=== PATIENT | female | born 1990 | race Caucasian/White ===

== ENCOUNTER → 2016-08-06 | Outpatient (CLI) | payer OTHER ==
[~2016-08-06] MED LIST: CELE10TA OR; CETI10TA OR; FLECTOR PATCH; Inhaler INH; VOLT75TA; YAZ3TAB2 PO; [UNRECOGNIZED DRUG - OTHER]
[2016-08-06 14:02] LABS: BASO % 0.7 % (0.0-1.0); EOS # 0.1 K/mm3 (0.0-0.50); EOS % 1.6 % (0.0-3.0); LYMPH # 1.1 K/mm3 (1.5-6.5); LYMPH % 15.6 % (24.0-44.0); MEAN CORPUSCULAR HEMOGLOBIN 31.6 pg (27.0-33.0); MEAN CORPUSCULAR HGB CONC 33.1 g/dl (32.0-36.5); MEAN CORPUSCULAR VOLUME 95.4 fl (80.0-96.0); MONO # 0.3 K/mm3 (0.0-0.8); MONO % 5.1 % (0.0-5.0); NEUTROPHILS # 4.9 K/mm3 (1.8-7.7); RED CELL DISTRIBUTION WIDTH 11.8 % (11.5-14.5); WHITE BLOOD COUNT 6.5 K/mm3 (4.0-10.0)
[2016-08-06 14:17] LABS: ALBUMIN 4.2 GM/DL (3.2-5.2); ALBUMIN/GLOBULIN RATIO 1.62 (1.00-1.93); ALKALINE PHOSPHATASE 82 U/L (45-117); ALT/SGPT 13 U/L (12-78); ANION GAP 5 MEQ/L (8-16); AST/SGOT 8 U/L (15-37); BILIRUBIN,TOTAL 0.3 MG/DL (0.2-1.0); BLOOD UREA NITROGEN 14 MG/DL (7-18); CALCIUM LEVEL 9.3 MG/DL (8.5-10.1); CARBON DIOXIDE LEVEL 28 MEQ/L (21-32); CHLORIDE LEVEL 109 MEQ/L (98-107); CREATININE FOR GFR 0.84 MG/DL (0.55-1.02); GLOMERULAR FILTRATION RATE > 60.0 (>60); GLUCOSE, FASTING 100 MG/DL (70-105); POTASSIUM SERUM 4.3 MEQ/L (3.5-5.1); SODIUM LEVEL 142 MEQ/L (136-145); TOTAL PROTEIN 6.8 GM/DL (6.4-8.2)
== END ==
LOC: M LAB 13:23
PROVIDERS: ATTEND Otolaryngology
DX: H93.90 Unspecified disorder of ear, unspecified ear (principal)

== ENCOUNTER 2017-03-03 15:11 | Emergency (ER) | payer OTHER ==
[~2017-03-03] VITALS: Ht 154.9 cm; Wt 57.7 kg
[2017-03-03 15:11] VITALS: BP 137/67
[2017-03-03] MEDS ORDERED: phenergan PO (15:41)
[2017-03-03] MEDS ORDERED: ONDA4TAB6 (15:41)
[2017-03-03] MEDS ORDERED: GABA-283 PO (15:41)
[2017-03-03] MEDS ORDERED: GABA-279 (15:41)
[2017-03-03] MEDS ORDERED: plaquenil PO (15:41)
== END 2017-03-03 17:52 | disposition left against medical advice (07) ==
LOC: M ED 15:11
DX: R11.10 Vomiting, unspecified (principal); Z53.29 Procedure and treatment not carried out because of patient's decision for other reasons

== ENCOUNTER 2017-10-01 15:33 | Outpatient (RCR) | payer MEDICAID | END 2017-10-12 | LOC: M OUTALCOH 10-07 15:00 | DX: F12.10 Cannabis abuse, uncomplicated (principal); F17.200 Nicotine dependence, unspecified, uncomplicated ==

== ENCOUNTER 2017-10-15 10:00 | Outpatient (RCR) | payer MEDICAID | END 2017-11-12 | LOC: M OUTALCOH 10-22 10:00 | DX: F12.10 Cannabis abuse, uncomplicated (principal); F17.200 Nicotine dependence, unspecified, uncomplicated ==

== ENCOUNTER 2017-11-20 16:25 | Outpatient (RCR) | payer MEDICAID | END 2017-12-12 | LOC: M OUTALCOH 12-04 16:00 | DX: F12.10 Cannabis abuse, uncomplicated (principal); F17.200 Nicotine dependence, unspecified, uncomplicated ==

== ENCOUNTER 2017-12-18 11:50 | Outpatient (RCR) | payer MEDICAID | END 2018-01-12 | LOC: M OUTALCOH 11:50 | DX: F12.10 Cannabis abuse, uncomplicated (principal); F17.200 Nicotine dependence, unspecified, uncomplicated ==

== ENCOUNTER → 2018-03-08 | Outpatient (REF) | payer OTHER | LOC: M SFHCLERA 13:30 | DX: J02.9 Acute pharyngitis, unspecified (principal) ==

== ENCOUNTER → 2018-03-15 | Outpatient (REF) | payer OTHER | LOC: M SFHCLERA 19:00 | DX: J02.9 Acute pharyngitis, unspecified (principal) ==

== ENCOUNTER 2018-03-26 16:52 | Emergency (ER) | payer OTHER, MEDICAID ==
[2018-03-26] MEDS: NS 1,000 ML IV (18:17)
[2018-03-26] MEDS: ONDANSETRON 4MG/2ML VIAL (J2405) IV (18:19)
[2018-03-26] MEDS: MORPHINE 4 MG/ML 1ML VIAL/SYRINGE (J2270) IV ×2 (18:20→20:00)
[2018-03-26 18:39] LABS: HEMATOCRIT 42.7 % (36.0-47.0); HEMOGLOBIN 14.4 g/dl (12.0-15.5); MEAN CORPUSCULAR HEMOGLOBIN 31.2 pg (27.0-33.0); MEAN CORPUSCULAR HGB CONC 33.7 g/dl (32.0-36.5); MEAN CORPUSCULAR VOLUME 92.6 fl (80.0-96.0); PLATELET COUNT, AUTOMATED 146 10^3/uL (150-450); RED BLOOD COUNT 4.61 10^6/uL (4.00-5.40); RED CELL DISTRIBUTION WIDTH 11.9 % (11.5-14.5); WHITE BLOOD COUNT 8.8 10^3/uL (4.0-10.0)
[2018-03-26 18:41] LABS: APPEARANCE, URINE CLEAR (CLEAR); BACTERIA, URINE AUTO 1+ (NEGATIVE); BILIRUBIN, URINE AUTO NEGATIVE (NEGATIVE); BLOOD, URINE BLOOD NEGATIVE (NEGATIVE); COLOR, URINE STRAW (YELLOW); GLUCOSE, URINE (UA) AUTO NEGATIVE (NEGATIVE); KETONE, URINE AUTO NEGATIVE (NEGATIVE); LEUKOCYTE ESTERASE, URINE AUTO NEGATIVE (NEGATIVE); NITRITE, URINE AUTO NEGATIVE (NEGATIVE); PROTEIN, URINE AUTO NEGATIVE (NEGATIVE); RBC, URINE AUTO 0 /HPF (0-3); SPECIFIC GRAVITY URINE AUTO 1.005 (1.002-1.035); SQUAMOUS EPITHELIAL CELL UR AU 0 /HPF (0-6); UROBILINOGEN, URINE AUTO 0.2 mg/dL (0.0-2.0); WBC, URINE AUTO 1 /HPF (0-3)
[2018-03-26 18:51] LABS: INR 0.99; PROTHROMBIN TIME 13.2 SECONDS (12.1-14.4)
[2018-03-26 19:02] LABS: ANION GAP 9 MEQ/L (8-16); BLOOD UREA NITROGEN 14 MG/DL (7-18); CALCIUM LEVEL 8.5 MG/DL (8.5-10.1); CARBON DIOXIDE LEVEL 23 MEQ/L (21-32); CHLORIDE LEVEL 111 MEQ/L (98-107); CREATININE FOR GFR 0.74 MG/DL (0.55-1.30); GLOMERULAR FILTRATION RATE > 60.0 (>60); GLUCOSE, FASTING 81 MG/DL (70-100); POTASSIUM SERUM 3.9 MEQ/L (3.5-5.1); SODIUM LEVEL 143 MEQ/L (136-145)
[2018-03-26 19:03] LABS: CONTROL LINE HCG INT CTR LINE PRESENT; HCG, SERUM QUALITATIVE NEGATIVE (NEGATIVE)
[2018-03-26] MEDS ORDERED: ISOVUE-370 76% 100ML VIAL (Q9967) As Ordered (19:08)
== END 2018-03-26 21:02 | disposition home or self-care (01) ==
LOC: M ED 16:52
DX: S13.4XXA Sprain of ligaments of cervical spine, initial encounter (principal); S33.5XXA Sprain of ligaments of lumbar spine, initial encounter; T14.8XXA Other injury of unspecified body region, initial encounter; V43.52XA Car driver injured in collision with other type car in traffic accident, initial encounter; Y92.410 Unspecified street and highway as the place of occurrence of the external cause; J45.909 Unspecified asthma, uncomplicated; F17.200 Nicotine dependence, unspecified, uncomplicated; Z88.2 Allergy status to sulfonamides; Z79.899 Other long term (current) drug therapy
CPT/HCPCS: J2270

== ENCOUNTER → 2018-07-19 | Outpatient (REF) | payer OTHER, MEDICAID ==
[~2018-07-19] MED LIST changes: +CYCL10TA PO; +GABA-1171; +GABA-843; +GABA-845 PO; +IBUP-1022 PO; +ONDA4TAB6; +XULA1DIS; +phenergan PO; +plaquenil PO
[2018-07-19 13:54] LABS: BASO # 0.1 10^3/uL (0.0-0.2); BASO % 1.1 % (0.0-1.0); EOS # 0.1 10^3/uL (0.0-0.50); EOS % 1.4 % (0.0-3.0); HEMATOCRIT 41.1 % (36.0-47.0); HEMOGLOBIN 13.5 g/dl (12.0-15.5); LYMPH # 0.7 10^3/uL (1.5-6.5); LYMPH % 11.1 % (24.0-44.0); MEAN CORPUSCULAR HEMOGLOBIN 30.8 pg (27.0-33.0); MEAN CORPUSCULAR HGB CONC 32.8 g/dl (32.0-36.5); MEAN CORPUSCULAR VOLUME 93.8 fl (80.0-96.0); MONO # 0.6 10^3/uL (0.0-0.8); MONO % 8.6 % (0.0-5.0); NEUTROPHILS # 5.1 10^3/uL (1.8-7.7); NEUTROPHILS % 77.5 % (36.0-66.0); PLATELET COUNT, AUTOMATED 125 10^3/uL (150-450); RED BLOOD COUNT 4.38 10^6/uL (4.00-5.40); WHITE BLOOD COUNT 6.6 10^3/uL (4.0-10.0)
[2018-07-19 14:05] LABS: ALBUMIN 3.6 GM/DL (3.2-5.2); ALT/SGPT 19 U/L (12-78); BILIRUBIN,TOTAL 0.3 MG/DL (0.2-1.0); BLOOD UREA NITROGEN 16 MG/DL (7-18); CALCIUM LEVEL 8.1 MG/DL (8.5-10.1); CARBON DIOXIDE LEVEL 25 MEQ/L (21-32); CHLORIDE LEVEL 111 MEQ/L (98-107); CREATININE FOR GFR 0.77 MG/DL (0.55-1.30); GLOMERULAR FILTRATION RATE > 60.0 (>60); GLUCOSE, FASTING 101 MG/DL (70-100); POTASSIUM SERUM 4.8 MEQ/L (3.5-5.1); RHEUMATOID FACTOR QUANT < 10.0 IU/ML (<15.0); SODIUM LEVEL 141 MEQ/L (136-145); THYROID STIMULATING HORMONE 0.933 uIU/ML (0.358-3.740); TOTAL PROTEIN 6.2 GM/DL (6.4-8.2)
[2018-07-19 14:11] LABS: TOTAL 25(OH) VITAMIN D 11.7 NG/ML (30.0-100.0)
[2018-07-19 15:14] LABS: ERYTHROCYTE SEDIMENTATION RATE 4 mm/hr (0-20)
[2018-07-20 14:17] LABS: ANTINUCLEAR ANTIBODIES DIRECT Negative (Negative)
== END ==
LOC: M LABNEURO 08:55
PROVIDERS: ATTEND Psychiatry & Neurology Neurology
DX: R51 Headache (principal)

== ENCOUNTER → 2020-06-12 | Outpatient (CLI) | payer OTHER ==
[~2020-06-12] MED LIST changes: +CYCL-707 PO; -CYCL10TA PO; +ISOVUE-370 76% 100ML VIAL As Ordered ONE
--- NOTE | 2020-06-12 08:31 | REPVR ---
PROCEDURE INFORMATION: Exam: CT Temporal Bones Without Contrast. Exam date and time: 06/12/2020 7:40 AM Age: 29 years old Clinical indication: Pain; Other: Ear; Additional info: Dysphagia TECHNIQUE: Imaging protocol: Computed tomography images of the temporal bones without contrast. Radiation optimization: All CT scans at this facility use at least one of these dose optimization techniques: automated exposure control; mA and/or kV adjustment per patient size (includes targeted exams where dose is matched to clinical indication); or iterative reconstruction. COMPARISON: CT Head without contrast 03/26/2018 7:06 PM FINDINGS: Left External Ear structures: The external ear structures are well developed. The external ear is clear. The scutum and tympanic membrane are identified and are unremarkable. Left Middle Ear: The middle ear structures are unremarkable. Specifically, the middle ear cavity is well developed and aerated and the ossicles are clearly identified. The oval windows and round windows are patent. Left Inner ear: The inner ear structures are unremarkable. Specifically, the internal auditory canals are symmetric and unremarkable. The julia falciformis appears normal. The cochlea and vestibular system are clearly visualized and appear unremarkable. There appears to be normal development of the cochlea and the modiolus appears normal as visualized. The vestibule are semicircular canals are of normal size and configuration. There is no evidence of labyrinthitis ossificans or otospongiosis /otosclerosis. The vestibular aqueduct is unremarkable without enlargement or flaring. The cochlear aqueduct is identified. Left facial nerve: The facial nerve is visualized without any abnormality seen. There is bone covering over the tympanic segment as visualized. Left Mastoids: Mastoid air cells are well developed. The mastoid air cells are well aerated. Right External Ear structures: The external ear structures are well developed. The external ear is clear. The scutum and tympanic membrane are identified and are unremarkable. Right Middle Ear: The middle ear structures are unremarkable. Specifically, the middle ear cavity is well developed and aerated and the ossicles are clearly identified. The oval windows and round windows are patent. Right Inner ear: The inner ear structures are unremarkable. Specifically, the internal auditory canals are symmetric and unremarkable. The julia falciformis appears normal. The cochlea and vestibular system are clearly visualized and appear unremarkable. There appears to be normal development of the cochlea and the modiolus appears normal as visualized. The vestibule are semicircular canals are of normal size and configuration. There is no evidence of labyrinthitis ossificans or otospongiosis /otosclerosis. The vestibular aqueduct is unremarkable without enlargement or flaring. The cochlear aqueduct is identified. Right facial nerve: The facial nerve is visualized without any abnormality seen. There is bone covering over the tympanic segment as visualized. Right Mastoids: Mastoid air cells are well developed. The mastoid air cells are well aerated. IMPRESSION: No acute findings of CT of the temporal bones. Electronically signed by: Razia Montague On 06/12/2020 08:31:51 AM
--- NOTE | 2020-06-12 08:36 | REPVR ---
PROCEDURE INFORMATION: Exam: CT Neck With Contrast Exam date and time: 06/12/2020 7:40 AM Age: 29 years old Clinical indication: Painful swallowing; Additional info: Dysphagia TECHNIQUE: Imaging protocol: Computed tomography images of the neck with intravenous contrast. Radiation optimization: All CT scans at this facility use at least one of these dose optimization techniques: automated exposure control; mA and/or kV adjustment per patient size (includes targeted exams where dose is matched to clinical indication); or iterative reconstruction. Contrast material: ISO 370; Contrast volume: 75 ml; Contrast route: INTRAVENOUS (IV); COMPARISON: CT Spine,cervical w/o contrast 03/26/2018 7:06 PM FINDINGS: Paranasal sinuses: Paranasal sinuses are clear without mucosal thickening or fluid. Nasal septum mildly deviated to right. Nasopharynx: Unremarkable. Oropharynx: Unremarkable. No significant tonsillar enlargement. Hypopharynx: Unremarkable. Larynx: Unremarkable. Normal epiglottis. Retropharyngeal space: Unremarkable. Submandibular/Parotid glands: Normal. Glands are normal in size. Thyroid: Normal. No enlarged or calcified nodules. Lymph nodes: No pathologically enlarged lymph nodes. No lymphadenopathy. Trachea: Visualized trachea is unremarkable. Lungs: Few small subpleural lucencies/blebs in pulmonary apices, right greater than left. Bones/joints: Straightening of lordosis may be positional or related to muscular spasm. Correlate clinically. No evidence of acute fracture. No spinal stenosis or neural foraminal narrowing. Vasculature: Widely patent cervical carotid and vertebral arteries and jugular veins. Soft tissues: Unremarkable. No significant soft tissue swelling. IMPRESSION: Essentially unremarkable soft tissue neck. Electronically signed by: Razia Montague On 06/12/2020 08:35:58 AM
== END ==
LOC: M RAD 07:12
PROVIDERS: ATTEND Otolaryngology
DX: R13.10 Dysphagia, unspecified (principal); H91.90 Unspecified hearing loss, unspecified ear
CPT/HCPCS: 70480; 70491; Q9967

== ENCOUNTER 2020-06-13 16:00 | Outpatient (RCR) | payer OTHER ==
[~2020-06-13 16:00] MED LIST changes: -ISOVUE-370 76% 100ML VIAL As Ordered ONE
== END 2020-06-14 ==
LOC: M PT 16:00
PROVIDERS: ATTEND Student in an Organized Health Care Education/Training Program
DX: Z51.89 Encounter for other specified aftercare (principal); M54.5 Low back pain

== ENCOUNTER → 2020-06-29 | Outpatient (CLI) | payer OTHER ==
[~2020-06-29] MED LIST changes: +GABA-282; -GABA-843
== END ==
LOC: M LABSMTC 12:43
PROVIDERS: ATTEND Family Medicine
DX: Z20.822 Contact with and (suspected) exposure to COVID-19 (principal)

== ENCOUNTER → 2020-07-06 | Outpatient (REF) | payer OTHER, MEDICAID | LOC: M LAB REF 07-05 14:33 | PROVIDERS: ATTEND Physician Assistant | DX: R19.7 Diarrhea, unspecified (principal) ==

== ENCOUNTER → 2020-07-13 | Outpatient (REF) | payer OTHER, MEDICAID | LOC: M SFHCLERA 11:13 | PROVIDERS: ATTEND Student in an Organized Health Care Education/Training Program | DX: R53.83 Other fatigue (principal) ==

== ENCOUNTER → 2020-11-09 | Outpatient (REF) | payer OTHER ==
[~2020-11-09] MED LIST changes: +GABA-283 PO; -GABA-845 PO
== END ==
LOC: M SFHCLERA 15:52
PROVIDERS: ATTEND Nurse Practitioner Family
DX: R63.4 Abnormal weight loss (principal); Z53.9 Procedure and treatment not carried out, unspecified reason

== ENCOUNTER → 2021-02-28 | Outpatient (CLI) | payer OTHER, MEDICAID ==
--- NOTE | 2021-02-28 12:09 | REP ---
INDICATION: FEVER. COMPARISON: None. TECHNIQUE: PA and lateral FINDINGS: The superior mediastinal structures are midline. The cardiac silhouette is unremarkable in size, shape, and position. The diaphragmatic surfaces of the lungs are regular, and the costophrenic angles are clear. The pulmonary west are clear. The imaged osseous structures are intact. IMPRESSION: There is no acute cardiopulmonary disease. <Electronically signed by Keven Monroy > 02/28/21 [id number]
== END ==
LOC: M WUC 11:51
PROVIDERS: ATTEND Nurse Practitioner Family
DX: R50.9 Fever, unspecified (principal)

== ENCOUNTER → 2021-05-24 | Outpatient (CLI) | payer OTHER ==
[~2021-05-24] MED LIST changes: +GASTROGRAFIN SOLUTION 30ML (Q9963) As Ordered ONE; +ISOVUE-370 76% 100ML VIAL As Ordered ONE
== END ==
LOC: M RAD 14:45
PROVIDERS: ATTEND Internal Medicine Hematology & Oncology
DX: R63.4 Abnormal weight loss (principal); R61 Generalized hyperhidrosis
CPT/HCPCS: 74177; Q9963; Q9967

== ENCOUNTER → 2021-06-04 | Outpatient (CLI) | payer OTHER ==
[~2021-06-04] MED LIST changes: -GASTROGRAFIN SOLUTION 30ML (Q9963) As Ordered ONE; -ISOVUE-370 76% 100ML VIAL As Ordered ONE
[2021-06-04 16:15] LABS: BASO # 0.1 10^3/uL (0.0-0.2); BASO % 0.9 % (0.0-1.0); EOS # 0.1 10^3/uL (0.0-0.5); HEMATOCRIT 41.4 % (36.0-47.0); HEMOGLOBIN 13.3 g/dl (12.0-15.5); LYMPH # 1.2 10^3/uL (1.5-5.0); LYMPH % 22.4 % (24.0-44.0); MEAN CORPUSCULAR HEMOGLOBIN 30.1 pg (27.0-33.0); MEAN CORPUSCULAR HGB CONC 32.1 g/dl (32.0-36.5); MEAN CORPUSCULAR VOLUME 93.7 fl (80.0-96.0); MONO # 0.4 10^3/uL (0.0-0.8); MONO % 6.9 % (2.0-8.0); NEUTROPHILS # 3.7 10^3/uL (1.5-8.5); NEUTROPHILS % 67.4 % (36.0-66.0); PLATELET COUNT, AUTOMATED 119 10^3/uL (150-450); RED BLOOD COUNT 4.42 10^6/uL (4.00-5.40); WHITE BLOOD COUNT 5.5 10^3/uL (4.0-10.0)
[2021-06-04 16:53] LABS: ALBUMIN 3.9 GM/DL (3.2-5.2); ALT/SGPT 21 U/L (12-78); BILIRUBIN,TOTAL 0.4 MG/DL (0.2-1.0); BLOOD UREA NITROGEN 19 MG/DL (7-18); CALCIUM LEVEL 8.8 MG/DL (8.5-10.1); CARBON DIOXIDE LEVEL 27 MEQ/L (21-32); CHLORIDE LEVEL 109 MEQ/L (98-107); CREATININE FOR GFR 0.72 MG/DL (0.55-1.30); FERRITIN 8 NG/ML (8-252); GLOMERULAR FILTRATION RATE > 60.0 (>60); GLUCOSE, FASTING 82 MG/DL (70-100); HCG, SERUM QUANTITATIVE < 1.0 MIU/ML; IMMUNOGLOBULIN A 62.6 MG/DL (70-400); IMMUNOGLOBULIN G 651 MG/DL (681-1648); IMMUNOGLOBULIN M 89.8 MG/DL (40-230); IRON (FE) 80 UG/DL (50-170); PERCENT SATURATION 20.3 % (13.2-45.0); POTASSIUM SERUM 4.4 MEQ/L (3.5-5.1); SODIUM LEVEL 139 MEQ/L (136-145); TOTAL IRON BINDING CAPACITY 394 UG/DL (250-450); TOTAL PROTEIN 6.4 GM/DL (6.4-8.2)
[2021-06-05 10:35] LABS: ALBUMIN 4.11 GM/DL (3.29-5.55); ALBUMIN % 64.2 % (55.8-66.1)
[2021-06-05 10:36] LABS: ALPHA-1-GLOBULIN % 4.7 % (2.9-4.9); ALPHA-2-GLOBULINS 0.67 GM/DL (0.42-0.99); ALPHA-2-GLOBULINS % 10.4 % (7.1-11.8); BETA-1-GLOBULINS 0.43 GM/DL (0.28-0.60); BETA-1-GLOBULINS % 6.7 % (4.7-7.2); BETA-2-GLOBULINS 0.21 GM/DL (0.19-0.55); BETA-2-GLOBULINS % 3.3 % (3.2-6.5); GAMMA GLOBULIN % 10.7 % (11.1-18.8); GAMMA GLOBULINS 0.68 GM/DL (0.65-1.58)
== END ==
LOC: M RAD 15:23
DX: R63.4 Abnormal weight loss (principal); R61 Generalized hyperhidrosis

== ENCOUNTER → 2021-08-28 | Outpatient (REF) | payer OTHER, MEDICAID | LOC: M SFHCPLAZ 16:42 | PROVIDERS: ATTEND Physician Assistant | DX: N30.01 Acute cystitis with hematuria (principal) ==

== ENCOUNTER 2022-01-14 01:39 | Emergency (ER) | payer MEDICAID, OTHER ==
[~2022-01-14] VITALS: Ht 154.9 cm; Wt 73.3 kg
[2022-01-14] MEDS ORDERED: KLON0.5T PO (01:47)
[2022-01-14] MEDS ORDERED: RISP1SS PO (01:47)
[2022-01-14] MEDS ORDERED: ONDA4TAB6 PO (01:47)
[2022-01-14] MEDS ORDERED: CELE40TA PO (01:47)
[2022-01-14 02:37] LABS: BASO # 0.1 10^3/uL (0.0-0.2); BASO % 1.1 % (0.0-1.0); EOS % 0.6 % (0.0-3.0); HEMATOCRIT 37.4 % (36.0-47.0); HEMOGLOBIN 12.1 g/dl (12.0-15.5); LYMPH # 0.8 10^3/uL (1.5-5.0); LYMPH % 17.6 % (24.0-44.0); MEAN CORPUSCULAR HEMOGLOBIN 30.8 pg (27.0-33.0); MEAN CORPUSCULAR HGB CONC 32.4 g/dl (32.0-36.5); MEAN CORPUSCULAR VOLUME 95.2 fl (80.0-96.0); MONO # 0.6 10^3/uL (0.0-0.8); MONO % 12.6 % (2.0-8.0); NEUTROPHILS # 3.2 10^3/uL (1.5-8.5); NEUTROPHILS % 67.3 % (36.0-66.0); PLATELET COUNT, AUTOMATED 114 10^3/uL (150-450); RED BLOOD COUNT 3.93 10^6/uL (4.00-5.40); WHITE BLOOD COUNT 4.8 10^3/uL (4.0-10.0)
[2022-01-14 03:02] LABS: HCG, SERUM QUALITATIVE NEGATIVE (NEGATIVE)
[2022-01-14 03:10] LABS: ALBUMIN 3.8 GM/DL (3.2-5.2); ALT/SGPT 27 U/L (12-78); BILIRUBIN,DIRECT < 0.1 MG/DL (0.0-0.2); BILIRUBIN,TOTAL 0.2 MG/DL (0.2-1.0); BLOOD UREA NITROGEN 15 MG/DL (7-18); CALCIUM LEVEL 8.9 MG/DL (8.5-10.1); CARBON DIOXIDE LEVEL 28 MEQ/L (21-32); CHLORIDE LEVEL 112 MEQ/L (98-107); CREATININE FOR GFR 0.79 MG/DL (0.55-1.30); GLOMERULAR FILTRATION RATE > 60.0 (>60); GLUCOSE, FASTING 90 MG/DL (70-100); LIPASE 119 U/L (73-393); POTASSIUM SERUM 4.2 MEQ/L (3.5-5.1); SODIUM LEVEL 143 MEQ/L (136-145); TOTAL PROTEIN 6.4 GM/DL (6.4-8.2)
[2022-01-14] MEDS ORDERED: KETOROLAC 30 MG/ML 1ML VIAL IV ONE (03:15)
[2022-01-14 05:30] LABS: GC DNA AMPLIFICATION NEGATIVE (NEGATIVE)
[2022-01-14] MEDS ORDERED: KETO10TAB PO (05:40)
[2022-01-14] MEDS ORDERED: PERCOCET 5MG/325MG TAB PO ONE (05:40)
[2022-01-14 05:55] VITALS: BP 128/78
== END 2022-01-14 05:58 | disposition home or self-care (01) ==
LOC: M ED 01:39
DX: R10.9 Unspecified abdominal pain (principal); Z87.59 Personal history of other complications of pregnancy, childbirth and the puerperium; Z87.42 Personal history of other diseases of the female genital tract; M32.9 Systemic lupus erythematosus, unspecified; M79.7 Fibromyalgia; F12.10 Cannabis abuse, uncomplicated; Z79.899 Other long term (current) drug therapy; Z88.2 Allergy status to sulfonamides
CPT/HCPCS: 76856; 80048; 80076; 81001; 83690; 84703; 85025; 87661; 87810; 87850; 93976; 96374; 99284; J1885

== ENCOUNTER → 2022-02-06 | Outpatient (REF) | payer OTHER, MEDICAID ==
[~2022-02-06] MED LIST changes: +CELE40TA PO; +KETO10TAB PO; +KLON0.5T PO; +ONDA4TAB6 PO; +RISP1SS PO
== END ==
LOC: M SFHCLERA 16:19
PROVIDERS: ATTEND Family Medicine
DX: R19.7 Diarrhea, unspecified (principal)

== ENCOUNTER → 2022-03-10 | Outpatient (CLI) | payer OTHER | LOC: M PAIN 13:30 | PROVIDERS: ATTEND Nurse Practitioner Family | DX: M25.561 Pain in right knee (principal); G89.29 Other chronic pain; M25.562 Pain in left knee; J45.909 Unspecified asthma, uncomplicated; M79.7 Fibromyalgia; Z86.14 Personal history of Methicillin resistant Staphylococcus aureus infection; Z86.59 Personal history of other mental and behavioral disorders; Z87.891 Personal history of nicotine dependence; Z88.2 Allergy status to sulfonamides; Z79.899 Other long term (current) drug therapy ==

== ENCOUNTER → 2022-04-24 | Outpatient (REF) | payer OTHER, MEDICAID ==
[~2022-04-24] MED LIST changes: +ALBU8.5H; +BENL120I IV; +FOLI1TAB11 PO; +HYDR200T3 PO; +METH1INJ IJ
[2022-04-24 17:55] LABS: APPEARANCE, URINE MANUAL CLEAR (CLEAR); BILIRUBIN, URINE MANUAL NEGATIVE (NEGATIVE); BLOOD URINE MANUAL NEGATIVE (NEGATIVE); COLOR, URINE MANUAL YELLOW (YELLOW); GLUCOSE, URINE (UA) MANUAL NEGATIVE (NEGATIVE); KETONE, URINE MANUAL NEGATIVE (NEGATIVE); LEUKOCYTE ESTERASE, URINE MAN NEGATIVE (NEGATIVE); NITRITE, URINE MANUAL NEGATIVE (NEGATIVE); PROTEIN, URINE MANUAL NEGATIVE (NEGATIVE); SPECIFIC GRAVITY,URINE MANUAL 1.015 (1.002-1.035); UROBILINOGEN, URINE MANUAL NORMAL (NORMAL)
== END ==
LOC: M SFHCLERA 17:17
PROVIDERS: ATTEND Student in an Organized Health Care Education/Training Program
DX: R30.0 Dysuria (principal)

== ENCOUNTER → 2022-04-29 | Outpatient (CLI) | payer OTHER, MEDICAID | LOC: M LABSMTC 11:54 | PROVIDERS: ATTEND Anesthesiology | DX: Z01.812 Encounter for preprocedural laboratory examination (principal); Z20.822 Contact with and (suspected) exposure to COVID-19 ==

== ENCOUNTER 2022-04-30 09:32 | Day surgery (SDC) | payer OTHER ==
[~2022-04-30] VITALS: Ht 154.9 cm; Wt 68.0 kg
[~2022-04-30 09:32] MED LIST changes: +NS 1,000 ML IV ONE
[2022-04-30] MEDS ORDERED: MIDAZOLAM INJ 2MG/2ML VIAL (J2250 PER 1MG) As Ordered ONE (10:13)
[2022-04-30] MEDS ORDERED: propofoL 200 MG/20 ML VIAL As Ordered ONE (10:14)
[2022-04-30] MEDS ORDERED: LIDOCAINE 2% 100MG/5ML SDV (FOR ANES.) As Ordered ONE (10:14)
[2022-04-30] MEDS ORDERED: GLYCOPYRROLATE INJ 0.2 MG/ML 2 ML VIAL As Ordered ONE (10:22)
[2022-04-30 11:17] VITALS: BP 145/86
== END 2022-04-30 11:19 | disposition home or self-care (01) ==
LOC: M OPP 09:32
PROVIDERS: ATTEND Surgery
DX: K52.9 Noninfective gastroenteritis and colitis, unspecified (principal); K31.89 Other diseases of stomach and duodenum; K44.9 Diaphragmatic hernia without obstruction or gangrene; Z79.51 Long term (current) use of inhaled steroids; Z79.899 Other long term (current) drug therapy; Z88.2 Allergy status to sulfonamides; Z87.891 Personal history of nicotine dependence; F32.9 Major depressive disorder, single episode, unspecified; F41.9 Anxiety disorder, unspecified; M32.9 Systemic lupus erythematosus, unspecified; J45.909 Unspecified asthma, uncomplicated
CPT/HCPCS: 43239; 45380; 88305; J2250

== ENCOUNTER → 2022-08-08 | Outpatient (REF) | payer OTHER, MEDICAID ==
[~2022-08-08] MED LIST changes: -NS 1,000 ML IV ONE
[2022-08-08 19:10] LABS: GC DNA AMPLIFICATION POSITIVE (NEGATIVE)
== END ==
LOC: M SFHCLERA 16:49
PROVIDERS: ATTEND Student in an Organized Health Care Education/Training Program
DX: Z20.2 Contact with and (suspected) exposure to infections with a predominantly sexual mode of transmission (principal); J02.9 Acute pharyngitis, unspecified

== ENCOUNTER 2023-05-12 10:09 | Emergency (ER) | payer MEDICAID, MEDICARE, OTHER, SELFPAY ==
[~2023-05-12] VITALS: Ht 154.9 cm; Wt 54.2 kg
[~2023-05-12 10:09] MED LIST changes: -GABA-283 PO; +GABA-284 PO; -HYDR200T3 PO; +HYDR200T46 PO
[2023-05-12 10:10] VITALS: BP 133/77; TEMP 98.1; O2SAT 99
[2023-05-12 11:36] LABS: BASO % 0.6 % (0.0-1.0); EOS % 0.6 % (0.0-3.0); HEMATOCRIT 44.5 % (36.0-47.0); HEMOGLOBIN 14.2 g/dl (12.0-15.5); LYMPH # 0.5 10^3/uL (1.5-5.0); LYMPH % 7.7 % (24.0-44.0); MEAN CORPUSCULAR HEMOGLOBIN 29.6 pg (27.0-33.0); MEAN CORPUSCULAR HGB CONC 31.9 g/dl (32.0-36.5); MEAN CORPUSCULAR VOLUME 92.7 fl (80.0-96.0); MONO # 0.3 10^3/uL (0.0-0.8); MONO % 4.6 % (2.0-8.0); NEUTROPHILS # 5.9 10^3/uL (1.5-8.5); NEUTROPHILS % 86.4 % (36.0-66.0); PLATELET COUNT, AUTOMATED 126 10^3/uL (150-450); WHITE BLOOD COUNT 6.8 10^3/uL (4.0-10.0)
[2023-05-12 12:04] LABS: LIPASE 25 U/L (12-53)
[2023-05-12 12:06] LABS: ALBUMIN 3.8 G/DL (3.2-5.2); ALKALINE PHOSPHATASE 102 U/L (46-116); ALT/SGPT 29 U/L (7.0-40); AST/SGOT 23 U/L (<34); BILIRUBIN,DIRECT 0.1 MG/DL (<0.4); BILIRUBIN,TOTAL 0.5 MG/DL (0.3-1.2); BLOOD UREA NITROGEN 13 MG/DL (9-23); CALCIUM LEVEL 8.8 MG/DL (8.5-10.1); CARBON DIOXIDE LEVEL 25 MMOL/L (20-31); CHLORIDE LEVEL 106 MMOL/L (98-107); CREATININE FOR GFR 0.75 MG/DL (0.55-1.30); GLOMERULAR FILTRATION RATE > 60.0 (>60); GLUCOSE, FASTING 94 MG/DL (60-100); POTASSIUM SERUM 4.1 MMOL/L (3.5-5.1); SODIUM LEVEL 138 MMOL/L (136-145); TOTAL PROTEIN 6.3 G/DL (5.7-8.2)
[2023-05-12 12:54] LABS: HCG, SERUM QUALITATIVE NEGATIVE (NEGATIVE)
[2023-05-12 13:26] LABS: RSV AMPLIFICATION NEGATIVE (NEGATIVE)
[2023-05-12] MEDS ORDERED: NS 1,000 ML IV ONE (13:35)
[2023-05-12] MEDS ORDERED: ONDANSETRON 4MG 2ML VIAL IV ONE (13:35)
[2023-05-12] MEDS ORDERED: KETOROLAC 30 MG/ML 1ML VIAL IV ONE (13:35)
[2023-05-12] MEDS ORDERED: REGL5TAB2 PO (15:07)
== END 2023-05-12 15:15 | disposition home or self-care (01) ==
LOC: M ED 10:09
DX: R11.2 Nausea with vomiting, unspecified (principal); R19.7 Diarrhea, unspecified; M32.10 Systemic lupus erythematosus, organ or system involvement unspecified; J45.909 Unspecified asthma, uncomplicated; F32.A Depression, unspecified; F41.9 Anxiety disorder, unspecified; F17.200 Nicotine dependence, unspecified, uncomplicated; Z88.2 Allergy status to sulfonamides; Z87.42 Personal history of other diseases of the female genital tract; Z79.52 Long term (current) use of systemic steroids; Z79.83 Long term (current) use of bisphosphonates; Z79.899 Other long term (current) drug therapy
CPT/HCPCS: 80048; 80076; 81001; 83690; 84703; 85025; 87631; 96361; 96374; 99283; J1885; J2405

== ENCOUNTER 2024-03-07 11:48 | Emergency (ER) | payer MEDICAID, MEDICARE, OTHER ==
[~2024-03-07] VITALS: Ht 154.9 cm; Wt 57.1 kg
[~2024-03-07 11:48] MED LIST changes: -KLON0.5T PO; +KLON0.5T8 PO; +ONDA-282; +ONDA-282 PO; -ONDA4TAB6; -ONDA4TAB6 PO; +REGL5TAB2 PO
[2024-03-07 11:50] VITALS: BP 141/86; TEMP 97.7; O2SAT 98
== END 2024-03-07 13:46 | disposition left against medical advice (07) ==
LOC: M ED 11:48
DX: Z53.21 Procedure and treatment not carried out due to patient leaving prior to being seen by health care provider (principal)

== ENCOUNTER 2025-03-01 13:26 | Outpatient (CLI) | payer MEDICARE ==
[~2025-03-01] VITALS: Ht 154.9 cm; Wt 56.8 kg
[~2025-03-01 13:26] MED LIST changes: +ALBUTEROL SULFATE 2.5 MG/0.5 ML INH CONCENTRATE NEB SOLN INH PRN; +EPINEPHrine INJ 1 MG/ML 1ML AMP IM PRN; +GABA-1172; -GABA-282; -IBUP-1022 PO; +IBUP600T42 PO; +NS (Normal Saline) 0.9% 1,000 ML IV SCH; +diphenhydrAMINE 50 MG/ML VIAL IV PRN
[2025-03-01] MEDS: diphenhydrAMINE 25MG PO PRIOR TO INFUSION PO ONE (13:42)
[2025-03-01] MEDS: ACETAMINOPHEN 650MG PO PRIOR TO INFUSION PO ONE (13:42)
[2025-03-01] MEDS: BELIMUMAB IV ONE (15:05)
[2025-03-01] MEDS: NS IV ONE (15:05)
[2025-03-01 16:20] VITALS: BP 98/49; O2SAT 100
== END 2025-03-01 16:20 | disposition home or self-care (01) ==
LOC: M INFU 13:26
PROVIDERS: ATTEND Nurse Practitioner Family
DX: M32.9 Systemic lupus erythematosus, unspecified (principal); Z88.2 Allergy status to sulfonamides
CPT/HCPCS: 96365; J0490

== ENCOUNTER 2025-03-16 07:08 | Emergency (ER) | payer MEDICARE ==
[~2025-03-16] VITALS: Ht 154.9 cm; Wt 54.0 kg
[~2025-03-16 07:08] MED LIST changes: -ALBUTEROL SULFATE 2.5 MG/0.5 ML INH CONCENTRATE NEB SOLN INH PRN; -EPINEPHrine INJ 1 MG/ML 1ML AMP IM PRN; -NS (Normal Saline) 0.9% 1,000 ML IV SCH; -diphenhydrAMINE 50 MG/ML VIAL IV PRN
[2025-03-16] MEDS ORDERED: GABA-1172 (07:20)
[2025-03-16] MEDS: PANTOPRAZOLE 40MG VIAL IV ONE (07:52)
[2025-03-16] MEDS: ONDANSETRON 4MG 2ML VIAL IV ONE (07:52)
[2025-03-16] MEDS: NS (Normal Saline) 0.9% 1,000 ML IV ONE (07:53)
[2025-03-16] MEDS: KETOROLAC 30 MG/ML 1 ML VIAL IV ONE (07:53)
[2025-03-16 07:55] LABS: BASO # 0.1 10^3/uL (0.0-0.2); BASO % 0.6 % (0.0-1.0); EOS # 0.0 10^3/uL (0.0-0.5); EOS % 0.3 % (0.0-3.0); LYMPH # 1.0 10^3/uL (1.5-5.0); LYMPH % 8.9 % (24.0-44.0); MONO # 0.6 10^3/uL (0.0-0.8); MONO % 5.2 % (2.0-8.0); NEUTROPHILS # 9.9 10^3/uL (1.5-8.5); NEUTROPHILS % 84.5 % (36.0-66.0); PLATELET COUNT, AUTOMATED 180 10^3/uL (150-450)
[2025-03-16 08:22] LABS: ALT/SGPT 17 U/L (7.0-40); AST/SGOT 18 U/L (<34); CALCIUM LEVEL 9.2 MG/DL (8.5-10.1); CARBON DIOXIDE LEVEL 22 MMOL/L (20-31); CHLORIDE LEVEL 110 MMOL/L (98-107); CREATININE FOR GFR 0.80 MG/DL (0.55-1.30); GLOMERULAR FILTRATION RATE > 90.0 (>60); POTASSIUM SERUM 4.0 MMOL/L (3.5-5.1); SODIUM LEVEL 138 MMOL/L (136-145)
[2025-03-16] MEDS ORDERED: ISOVUE-370 76% 100 ML VIAL As Ordered ONE (09:56)
[2025-03-16] MEDS: MORPHINE 2 MG/ML 1 ML VIAL IV ONE (10:53)
[2025-03-16 12:15] VITALS: BP 119/56; O2SAT 99
[2025-03-16 12:22] VITALS: TEMP 98.6
[2025-03-16] MEDS ORDERED: HYDR-3713 PO (12:31)
[2025-03-16] MEDS ORDERED: ONDA-282 PO (12:31)
[2025-03-16] MEDS ORDERED: PROT20TA11 PO (12:31)
== END 2025-03-16 12:36 | disposition home or self-care (01) ==
LOC: M ED 07:08
DX: N83.292 Other ovarian cyst, left side (principal); R11.2 Nausea with vomiting, unspecified; R19.7 Diarrhea, unspecified; Z79.899 Other long term (current) drug therapy; Z88.2 Allergy status to sulfonamides
CPT/HCPCS: 74177; 76856; 80048; 80076; 83690; 85025; 87486; 87581; 87633; 87798; 93976; 96361; 96374; 96375; 99284; J1885; J2405; J2470; J2765; Q9967

== ENCOUNTER → 2025-03-17 | Outpatient (REF) | payer MEDICARE ==
[~2025-03-17] MED LIST changes: +HYDR-3713 PO; +PROT20TA11 PO
== END ==
LOC: M LAB REF 14:17
PROVIDERS: ATTEND Physician Assistant Medical
DX: M32.9 Systemic lupus erythematosus, unspecified (principal); Z79.899 Other long term (current) drug therapy; R19.7 Diarrhea, unspecified

== ENCOUNTER → 2025-03-28 | Outpatient (REF) | payer MEDICARE ==
[2025-03-28 18:21] LABS: APPEARANCE, URINE CLEAR (CLEAR); BACTERIA, URINE AUTO NEGATIVE (NEGATIVE); BILIRUBIN, URINE AUTO NEGATIVE (NEGATIVE); BLOOD, URINE BLOOD NEGATIVE (NEGATIVE); GLUCOSE, URINE (UA) AUTO NEGATIVE (NEGATIVE); KETONE, URINE AUTO NEGATIVE (NEGATIVE); LEUKOCYTE ESTERASE, URINE AUTO NEGATIVE (NEGATIVE); NITRITE, URINE AUTO NEGATIVE (NEGATIVE); PROTEIN, URINE AUTO NEGATIVE (NEGATIVE); RBC, URINE AUTO 0 /HPF (0-3); SPECIFIC GRAVITY URINE AUTO 1.020 (1.002-1.035); SQUAMOUS EPITHELIAL CELL UR AU 1 /HPF (0-6); UROBILINOGEN, URINE AUTO 0.2 mg/dL (0.0-2.0); WBC, URINE AUTO 0 /HPF (0-3)
== END ==
LOC: M SFHCLERA 16:59
PROVIDERS: ATTEND Family Medicine
DX: R30.0 Dysuria (principal)

== ENCOUNTER 2025-04-18 13:19 | Outpatient (CLI) | payer MEDICARE ==
[~2025-04-18] VITALS: Ht 154.9 cm; Wt 54.5 kg
[~2025-04-18 13:19] MED LIST changes: +ALBUTEROL SULFATE 2.5 MG/0.5 ML INH CONCENTRATE NEB SOLN INH PRN; +EPINEPHrine INJ 1 MG/ML 1ML AMP IM PRN; +NS (Normal Saline) 0.9% 1,000 ML IV SCH; +diphenhydrAMINE 50 MG/ML VIAL IV PRN
[2025-04-18 13:35] VITALS: BP 113/66; O2SAT 98
[2025-04-18] MEDS: ACETAMINOPHEN 650MG PO PRIOR TO INFUSION PO ONE (13:51)
[2025-04-18] MEDS: diphenhydrAMINE 25MG PO PRIOR TO INFUSION PO ONE (13:51)
[2025-04-18 14:05] VITALS: BP 133/88; O2SAT 98
[2025-04-18] MEDS: BELIMUMAB in NS 250 ML OVER 1 HOUR IV ONE (14:52)
[2025-04-18 15:59] VITALS: BP 116/55; O2SAT 100
== END 2025-04-18 15:52 ==
LOC: M INFU 13:19
PROVIDERS: ATTEND Nurse Practitioner Family
DX: M32.9 Systemic lupus erythematosus, unspecified (principal); Z88.2 Allergy status to sulfonamides
CPT/HCPCS: 96365; J0490

== ENCOUNTER → 2025-05-09 | Outpatient (REF) | payer MEDICARE ==
[~2025-05-09] MED LIST changes: -ALBUTEROL SULFATE 2.5 MG/0.5 ML INH CONCENTRATE NEB SOLN INH PRN; -EPINEPHrine INJ 1 MG/ML 1ML AMP IM PRN; -NS (Normal Saline) 0.9% 1,000 ML IV SCH; -diphenhydrAMINE 50 MG/ML VIAL IV PRN
[2025-05-12 11:37] LABS: HPV APTIMA Detected (Not Detected)
== END ==
LOC: M WHC 15:24
PROVIDERS: ATTEND Obstetrics & Gynecology
DX: Z12.4 Encounter for screening for malignant neoplasm of cervix (principal); R87.610 Atypical squamous cells of undetermined significance on cytologic smear of cervix (ASC-US)
CPT/HCPCS: 87624; G0123

== ENCOUNTER 2025-05-16 13:23 | Outpatient (CLI) | payer MEDICARE ==
[~2025-05-16] VITALS: Ht 154.9 cm; Wt 54.5 kg
[~2025-05-16 13:23] MED LIST changes: +ALBUTEROL SULFATE 2.5 MG/0.5 ML INH CONCENTRATE NEB SOLN INH PRN; +EPINEPHrine INJ 1 MG/ML 1ML AMP IM PRN; +NS (Normal Saline) 0.9% 1,000 ML IV SCH; +diphenhydrAMINE 50 MG/ML VIAL IV PRN
[2025-05-16] MEDS: diphenhydrAMINE 25MG PO PRIOR TO INFUSION PO ONE (13:51)
[2025-05-16] MEDS: ACETAMINOPHEN 650MG PO PRIOR TO INFUSION PO ONE (13:51)
[2025-05-16] MEDS: BELIMUMAB in NS 250 ML OVER 1 HOUR IV ONE (15:01)
[2025-05-16 16:46] VITALS: BP 108/65; O2SAT 100
== END 2025-05-16 16:47 | disposition home or self-care (01) ==
LOC: M INFU 13:23
PROVIDERS: ATTEND Nurse Practitioner Family
DX: M32.9 Systemic lupus erythematosus, unspecified (principal); Z88.2 Allergy status to sulfonamides
CPT/HCPCS: 96365; J0490

== ENCOUNTER → 2025-06-05 | Outpatient (CLI) | payer MEDICARE ==
[~2025-06-05] MED LIST changes: -ALBUTEROL SULFATE 2.5 MG/0.5 ML INH CONCENTRATE NEB SOLN INH PRN; -EPINEPHrine INJ 1 MG/ML 1ML AMP IM PRN; -NS (Normal Saline) 0.9% 1,000 ML IV SCH; -diphenhydrAMINE 50 MG/ML VIAL IV PRN
== END ==
LOC: M WHC 07:16
PROVIDERS: ATTEND Obstetrics & Gynecology
DX: N93.9 Abnormal uterine and vaginal bleeding, unspecified (principal)

== ENCOUNTER 2025-06-13 13:35 | Outpatient (CLI) | payer MEDICARE ==
[~2025-06-13] VITALS: Ht 154.9 cm; Wt 54.4 kg
[2025-06-13 13:35] VITALS: BP 122/72; O2SAT 96
[~2025-06-13 13:35] MED LIST changes: +ALBUTEROL SULFATE 2.5 MG/0.5 ML INH CONCENTRATE NEB SOLN INH PRN; +EPINEPHrine INJ 1 MG/ML 1ML AMP IM PRN; +NS (Normal Saline) 0.9% 1,000 ML IV SCH; +diphenhydrAMINE 50 MG/ML VIAL IV PRN
[2025-06-13] MEDS: diphenhydrAMINE 25MG PO PRIOR TO INFUSION PO ONE (13:55)
[2025-06-13] MEDS: ACETAMINOPHEN 650MG PO PRIOR TO INFUSION PO ONE (13:56)
[2025-06-13] MEDS: BELIMUMAB in NS 250 ML OVER 1 HOUR IV ONE (15:09)
[2025-06-13 16:10] VITALS: BP 108/65; O2SAT 99
== END 2025-06-13 16:15 ==
LOC: M INFU 13:35
PROVIDERS: ATTEND Nurse Practitioner Family
DX: M32.9 Systemic lupus erythematosus, unspecified (principal); Z88.2 Allergy status to sulfonamides
CPT/HCPCS: 96365; J0490